=== PATIENT | male | born 1985 | race Caucasian/White ===

== ENCOUNTER 2020-01-23 21:57 | Emergency (ER) | payer BC, OTHER ==
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
[2020-01-23 22:07] VITALS: BP 142/99; PULSE 78; TEMP 98.5; BMI 25.7
[2020-01-23] MEDS ORDERED: IBUPROFEN 600 MG TABLET (FP) PO ONE (22:31)
[2020-01-23] MEDS ORDERED: CEPHALEXIN MONOHYDRATE 500 MG CAPSULE (UD) PO ONE (23:04)
[2020-01-23] MEDS ORDERED: DIPHTH,PERTUSS(ACELL),TET 0.5 ML DISP.SYRIN IM ONE ×2 (23:22→23:43)
== END 2020-01-24 00:05 | disposition home or self-care (01) ==
LOC: FER 21:57
PROC: 3E0234Z Introduction of Serum, Toxoid and Vaccine into Muscle, Percutaneous Approach (ICD-10-PCS; principal; 2020-01-23)
DX: S62.306A Unspecified fracture of fifth metacarpal bone, right hand, initial encounter for closed fracture (principal); S61.411A Laceration without foreign body of right hand, initial encounter; Y04.0XXA Assault by unarmed brawl or fight, initial encounter
CPT/HCPCS: 73130-TC-RT-FY; 90715; 99283-25

== ENCOUNTER 2024-05-08 19:02 | Emergency (ER) | payer BC, OTHER ==
[2024-05-08 19:11] VITALS: BP 162/82; PULSE 71; RESP 18; TEMP 97.3; BMI 24.4
== END 2024-05-08 23:41 | disposition home or self-care (01) ==
LOC: JERFT 19:02
DX: S92.901A Unspecified fracture of right foot, initial encounter for closed fracture (principal); W09.8XXA Fall on or from other playground equipment, initial encounter
CPT/HCPCS: 73630-TC-RT-FY; 99283-25